=== PATIENT | female | born 1990 | race African-American/Black ===

== ENCOUNTER 2018-04-23 05:08 | Emergency (ER) | payer BC, OTHER ==
[2018-04-23 05:14] VITALS: BP 118/79
[2018-04-23] MEDS ORDERED: DEXAMETHASONE SOD PHOS INJ 10 MG/1 ML VIAL IM ONE (05:38)
[2018-04-23] MEDS ORDERED: KETOROLAC TROMETHAMINE INJ/PF 30 MG/1 ML SDV IM ONE (05:38)
--- NOTE | 2018-04-23 05:40 | ER Document Report ---
HPI - HPI Pain Level: 5 Notes: Patient is a 27-year-old female with no significant past medical history who presents to the ED complaining of from her shoulder blades down to her lower back 2 days. Patient states that she is doing physical training with [employer] and was doing a lot of twisting, bending, and lifting. Patient states that her soreness started thereafter. Pain is described as spasming and is worsened by truncal movements. Patient states that she did receive one muscle relaxer tablet by her [place], but did not feel much of a difference at that time. She has been eating and drinking without any difficulties. She is urinating normally and having normal bowel movements. Patient states that the pain does not radiate into her lower extremities. She has not had any surgeries or procedures to her back. She denies any previous history of spinal abscess. Denies any smoking or IV drug use. Denies any headache, fever, neck pain, URI, sore throat, chest pain, palpitations, syncope, cough, shortness of breath, wheeze, dyspnea, abdominal pain, nausea/vomiting/diarrhea, urinary retention, dysuria, hematuria, loss of control of bowel or bladder, numbness/ tingling, saddle anesthesia, muscle paralysis/weakness, or rash. - ROS Systems Reviewed and Negative: Yes All other systems reviewed and negative - REPRODUCTIVE LMP: 04-12-18 Reproductive: DENIES: : Past Medical History - Social History Smoking Status: Never Smoker Family History: Reviewed & Not Pertinent Past Surgical History: Reports: Hx Oral Surgery - wisdom teeth - Immunizations Hx Diphtheria, Pertussis, Tetanus Vaccination: Yes - Jan 2015 Vertical Provider Document - CONSTITUTIONAL Agree With Documented VS: Yes Notes: PHYSICAL EXAMINATION: GENERAL: Well-appearing, well-nourished and in no acute distress. LUNGS: Breath sounds clear to auscultation bilaterally and equal. No wheezes rales or rhonchi. HEART: Regular rate and rhythm without murmurs, rubs, gallops. ABDOMEN: Soft, nontender, nondistended abdomen. No guarding, no rebound. No masses appreciated. Normal bowel sounds present. No CVA tenderness bilaterally. No pulsatile mass Musculoskeletal: LE's b/l: FROM to passive/active. Strength 5+/5. No deficits noted. No bony tenderness of extremities. Back: FROM to passive/active. Strength 5+/5. No vertebral point tenderness, stepoffs, or deformities. No other bony tenderness, erythema, swelling, or ecchymosis. SLR negative b/l. + mild tenderness to the T&L-paraspinal mm b/l. Mild spasming. No SI jt tenderness. No foot drop Extremities: No cyanosis, clubbing, or edema b/l. Peripheral pulses 2+. Capillary refill less than 2 seconds. NEUROLOGICAL: Normal speech, normal gait. Normal sensory, motor exams. Reflexes 2+ b/l. PSYCH: Normal mood, normal affect. SKIN: Warm, Dry, normal turgor, no rashes or lesions noted. - INFECTION CONTROL TRAVEL OUTSIDE OF THE [place] IN LAST 30 DAYS: No Course - Re-evaluation Re-evalutation: 04/23/18 05:42 Patient is an afebrile, well-hydrated, 27-year-old female who presents to the ED with bilateral paraspinal thoracic and lumbar back pain, suspect strain and spasming. Vitals are acceptable. PE is otherwise unremarkable for any focal neurological deficits. Patient has no significant tachycardia, tachypnea, or hypoxia. She is nontoxic-appearing. Decadron and Toradol given IM today. No other red flag symptoms at this time. No other labs or imaging warranted at this time based on H&P. Low suspicion for any meningitis, fracture, expanding/ ruptured AAA, cauda equina syndrome, epidural mass lesion/abscess, herniated disc causing severe spinal stenosis, or other systemic infection at this time. Patient is aware that this condition can change from initial presentation and that she needs monitor symptoms closely for any acute changes. I will send her home with a prescription for baclofen and naproxen. Conservative measures otherwise for symptoms. Recheck with your PCM in 3-5 days. Consider consult orthopedic/physical therapy. Return to the ED with any worsening/concerning symptoms otherwise as reviewed discharge. Patient is in agreement. - Vital Signs Vital signs: Temp Pulse Resp BP Pulse Ox 98 F 77 18 118/79 98 04/23/18 05:13 04/23/18 05:13 04/23/18 05:13 04/23/18 05:13 04/23/18 05:13 Discharge - Discharge Clinical Impression: Thoracic back pain Qualifiers: Chronicity: acute Back pain laterality: bilateral Qualified Code(s): M54.6 - Pain in thoracic spine Low back pain Qualifiers: Chronicity: acute Back pain laterality: bilateral Sciatica presence: without sciatica Qualified Code(s): M54.5 - Low back pain Condition: Stable Disposition: HOME, SELF-CARE Instructions: Low Back Pain ([facility]), Muscle Relaxers ([facility]), Muscle Strain ([facility]), Stretching Exercises for the Back ([facility]) Additional Instructions: Rest, Ice, Compression, Elevation Tylenol/ibuprofen as needed Light stretches daily Strength exercises as able Moist heat and massage may help F/u with your PCP in 3-5 days for a recheck Consider consult(s) with Orthopedics/physical therapy for ongoing/worsening symptoms Return to the ED with any worsening symptoms and/or development of fever, headache, chest pain, palpitations, syncope, shortness of breath, trouble breathing, abdominal pain, n/v/d, blood in stool/urine, loss of control of bowel /bladder, urinary retention, muscle weakness/paralysis, saddle anesthesia, numbness/tingling, or other worsening symptoms that are concerning to you. Prescriptions: Baclofen [Baclofen 10 mg Tablet] 5 - 10 mg PO BID PRN #10 tablet PRN Reason: Naproxen 500 mg PO BID PRN #30 tablet PRN Reason: Referrals: KELLY SCOTT MD [Primary Care Provider] - Follow up in 3-5 days [facility] [Provider Group] - Follow up as needed
== END 2018-04-23 06:01 | disposition home or self-care (01) ==
LOC: ER 05:08
DX: M54.5 Low back pain (principal); M54.6 Pain in thoracic spine
CPT/HCPCS: 99283; 96372; J1885; J1100

== ENCOUNTER 2018-04-25 12:56 | Emergency (ER) | payer BC, OTHER ==
--- NOTE | 2018-04-25 13:32 | ER Document Report ---
ED Medical Screen (RME) - General Chief Complaint: Syncope Stated Complaint: SNYCOPE Time Seen by Provider: 04/25/18 13:24 Notes: RAPID MEDICAL EVALUATION DISCLOSURE I have seen this patient as part of a Rapid Medical Evaluation and, if applicable, placed any initially appropriate orders. The patient will be seen and fully evaluated, including a full history and physical exam, by a provider ( in Main ED or Fast Track) when a room becomes available. 27F here with complaints of syncope that occurred early this morning. She had one episode of syncope at work, with collapse. She remembers getting lightheaded, dizzy, sweaty, palpitations, and some chest pains prior to collapsing. When EMS arrived, they witnessed another episode of syncope. She has no prior history of similar. She has been eating and drinking per usual. She does currently have a headache but states that she did not hit her head. She also complains of some neck pain. EXAM CTAB RRR Midline cervical and thoracic spine TTP without step-off TRAVEL OUTSIDE OF THE [place] IN LAST 30 DAYS: No - Related Data Allergies/Adverse Reactions: No Known Allergies Allergy (Verified 02/07/15 01:21) Past Medical History - Social History Chew tobacco use (# tins/day): No Frequency of alcohol use: None Drug Abuse: None Renal/ Medical History: Denies: Hx Peritoneal Dialysis Past Surgical History: Reports: Hx Oral Surgery - wisdom teeth - Immunizations Hx Diphtheria, Pertussis, Tetanus Vaccination: Yes - Jan 2015 Physical Exam - Vital signs Vitals: Temp Pulse Resp BP Pulse Ox 98.4 F 92 18 119/81 98 04/25/18 13:05 04/25/18 13:04/25/18 13:04/25/18 13:04/25/18 13:05 Course - Vital Signs Vital signs: Temp Pulse Resp BP Pulse Ox 98.4 F 92 18 119/81 98 04/25/18 13:05 04/25/18 13:05 04/25/18 13:05 04/25/18 13:05 04/25/18 13:05
--- NOTE | 2018-04-25 14:53 | RADIOLOGY REPORT (SQ) ---
EXAM DESCRIPTION: CT HEAD WITHOUT COMPLETED DATE/TIME: 04/25/2018 2:41 pm REASON FOR STUDY: syncope/collapse, SOMMER, neck pain COMPARISON: None. TECHNIQUE: Axial images acquired through the brain without intravenous contrast. Images reviewed wi th bone, brain and subdural windows. Additional sagittal and coronal reconstructions were generated. Images stored on PACS. All CT scanners at this facility use dose modulation, iterative reconstruction, and/or weight based d osing when appropriate to reduce radiation dose to as low as reasonably achievable (ALARA). [facility]: Dose Right [facility]: CareDose [facility]: Dose Right [facility]: Teradose 4D [facility]: Smart [employer] RADIATION DOSE: CT Rad equipment meets quality standard of care and radiation dose reduction techniq ues were employed. CTDIvol: 53.2 mGy. DLP: 1070 mGy-cm. mGy. LIMITATIONS: None. FINDINGS: VENTRICLES: Normal size and contour. CEREBRUM: No masses. No hemorrhage. No midline shift. No evidence for acute infarction. Normal gra y/white matter differentiation. No areas of low density in the white matter. CEREBELLUM: No masses. No hemorrhage. No alteration of density. No evidence for acute infarction. EXTRAAXIAL SPACES: No fluid collections. No masses. ORBITS AND GLOBE: No intra- or extraconal masses. Normal contour of globe without masses. CALVARIUM: No fracture. PARANASAL SINUSES: No fluid or mucosal thickening. SOFT TISSUES: No mass or hematoma. OTHER: No other significant finding. IMPRESSION: NORMAL BRAIN CT WITHOUT CONTRAST. EVIDENCE OF ACUTE STROKE: NO. COMMENT: Quality ID # 436: Final reports with documentation of one or more dose reduction techniques (e.g., Automated exposure control, adjustment of the mA and/or kV according to patient size, use of iterative reconstruction technique) TECHNICAL DOCUMENTATION: JOB ID: [id number] [employer]- All Rights Reserved Reading location - IP/workstation name: [email or web address]
--- NOTE | 2018-04-25 14:55 | RADIOLOGY REPORT (SQ) ---
EXAM DESCRIPTION: CT CERVICAL SPINE WITHOUT COMPLETED DATE/TIME: 04/25/2018 2:41 pm REASON FOR STUDY: syncope/collapse, SOMMER, neck pain COMPARISON: None. TECHNIQUE: Axial images acquired through the cervical spine without intravenous contrast. Images re viewed with lung, soft tissue and bone windows. Reconstructed coronal and sagittal MPR images review ed. Images stored on PACS. All CT scanners at this facility use dose modulation, iterative reconstruction, and/or weight based d osing when appropriate to reduce radiation dose to as low as reasonably achievable (ALARA). [facility]: Dose Right [facility]: CareDose [facility]: Dose Right [facility]: Teradose 4D [facility]: Smart [employer] RADIATION DOSE: CT Rad equipment meets quality standard of care and radiation dose reduction techniq ues were employed. CTDIvol: 22.0 mGy. DLP: 445 mGy-cm. mGy. LIMITATIONS: None. FINDINGS: ALIGNMENT: Anatomic. MINERALIZATION: Normal. VERTEBRAL BODIES: No fractures or dislocation. DISCS: No significant disc disease. FACETS, LATERAL MASSES, POSTERIOR ELEMENTS: No fractures. No dislocation. No acute findings. HARDWARE: None in the spine. VISUALIZED RIBS: No fractures. LUNG APICES AND SOFT TISSUES: No significant or acute findings. OTHER: No other significant finding. IMPRESSION: NO ACUTE OR SIGNIFICANT FINDINGS IN THE CERVICAL SPINE. TECHNICAL DOCUMENTATION: JOB ID: [id number] Quality ID # [id number]: Final reports with documentation of one or more dose reduction techniques (e.g., Au tomated exposure control, adjustment of the mA and/or kV according to patient size, use of iterative reconstruction technique) 2010 [employer]- All Rights Reserved Reading location - IP/workstation name: [email or web address]
--- NOTE | 2018-04-25 15:11 | RADIOLOGY REPORT (SQ) ---
EXAM DESCRIPTION: CHEST 2 VIEWS COMPLETED DATE/TIME: 04/25/2018 3:03 pm REASON FOR STUDY: syncope/collapse, SOMMER, neck pain COMPARISON: None. EXAM PARAMETERS: NUMBER OF VIEWS: two views TECHNIQUE: Digital Frontal and Lateral radiographic views of the chest acquired. RADIATION DOSE: NA LIMITATIONS: none FINDINGS: LUNGS AND PLEURA: No opacities, masses or pneumothorax. No pleural effusion. MEDIASTINUM AND HILAR STRUCTURES: No masses or contour abnormalities. HEART AND VASCULAR STRUCTURES: Heart normal size. No evidence for failure. BONES: No acute findings. HARDWARE: None in the chest. OTHER: No other significant finding. IMPRESSION: NO ACUTE RADIOGRAPHIC FINDING IN THE CHEST. TECHNICAL DOCUMENTATION: JOB ID: [id number] [employer]- All Rights Reserved Reading location - IP/workstation name: [email or web address]
--- NOTE | 2018-04-25 15:12 | RADIOLOGY REPORT (SQ) ---
EXAM DESCRIPTION: T SPINE AP/LAT COMPLETED DATE/TIME: 04/25/2018 3:03 pm REASON FOR STUDY: fall COMPARISON: None. NUMBER OF VIEWS: Two views. TECHNIQUE: AP and lateral radiographic images acquired of the thoracic spine. LIMITATIONS: None. FINDINGS: MINERALIZATION: Normal. ALIGNMENT: Normal. No scoliosis. VERTEBRAE: No fracture or bone lesion. Maintained height, normal segmentation. DISCS: No significant loss of height or significant narrowing. No large osteophytes. HARDWARE: None in the spine. MEDIASTINUM AND SOFT TISSUES: Normal heart size and aortic contour. No soft tissue abnormality. VISUALIZED LUNG COLBY: Clear. OTHER: No other significant finding. IMPRESSION: NO SIGNIFICANT RADIOGRAPHIC FINDING IN THE THORACIC SPINE. TECHNICAL DOCUMENTATION: JOB ID: [id number] [employer]- All Rights Reserved Reading location - IP/workstation name: [email or web address]
[2018-04-25 15:18] LABS: ABSOLUTE MONOCYTES (AUTO) 0.6 10^3/uL (0.1-1.4); ABSOLUTE NEUT (AUTO) 1.8 10^3/uL (1.7-8.2); BASOPHILS % (AUTO) 0.7 % (0-2); EOSINOPHILS % (AUTO) 0.3 % (0-6); HEMATOCRIT 37.9 % (36.0-47.0); HEMOGLOBIN 12.6 g/dL (12.0-15.5); LYMPHOCYTES % (AUTO) 29.1 % (13-45); MEAN CORPUSCULAR HEMOGLOBIN 29.9 pg (27.0-33.4); MEAN CORPUSCULAR HGB CONC 33.3 g/dL (32.0-36.0); MEAN CORPUSCULAR VOLUME 90 fl (80-97); MONOCYTES % (AUTO) 18.4 % (3-13); PLATELET COUNT 156 10^3/uL (150-450); RED BLOOD COUNT 4.23 10^6/uL (3.72-5.28); RED CELL DISTRIBUTION WIDTH 12.8 % (11.5-14.0); SEGMENTED NEUTROPHILS % (AUTO) 51.5 % (42-78); TOTAL CELLS COUNTED % (AUTO) 100 %; WHITE BLOOD COUNT 3.5 10^3/uL (4.0-10.5)
[2018-04-25 15:58] LABS: ALANINE AMINOTRANSFERASE 42 U/L (9-52); ALBUMIN 4.1 g/dL (3.5-5.0); ALKALINE PHOSPHATASE 70 U/L (38-126); ANION GAP 11 (5-19); ASPARTATE AMINO TRANSFERASE 35 U/L (14-36); BILIRUBIN,DIRECT 0.3 mg/dL (0.0-0.4); BILIRUBIN,TOTAL 0.5 mg/dL (0.2-1.3); BLOOD UREA NITROGEN 14 mg/dL (7-20); CALCIUM 9.1 mg/dL (8.4-10.2); CARBON DIOXIDE 27 mmol/L (22-30); CHLORIDE 104 mmol/L (98-107); GLUCOSE 76 mg/dL (75-110); PHOSPHORUS 4.7 mg/dL (2.5-4.5); POTASSIUM 3.6 mmol/L (3.6-5.0); SODIUM 141.7 mmol/L (137-145); TOTAL PROTEIN 7.1 g/dL (6.3-8.2)
--- NOTE | 2018-04-25 16:25 | ER Document Report ---
ED General <CARLEEN WU - Last Filed: 04/25/18 16:38> - General Mode of Arrival: Ambulatory Information source: Patient TRAVEL OUTSIDE OF THE [place] IN LAST 30 DAYS: No <TONE SURESH - Last Filed: 04/25/18 16:39> - General Chief Complaint: Syncope Stated Complaint: SNYCOPE Time Seen by Provider: 04/25/18 13:24 Notes: 27 y.o female presents to the ED via EMS s/p two syncopal episode earlier today. Pt reports that she went to her daughter's field day at school and was feeling fine but when she got to work she started feeling faint with her heart racing so she sat down and got some fresh air and started to feel better but when coming back inside to sit down she was walking and the next thing she knew she was on the ground with everyone around her because she had fainted. Pt states that she does not know how long she had loss consciousness. Pt had her second syncopal episode after EMS had arrived. She denies any recent illness or malaise and reports that she had felt fine leading up to her faint feeling. 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 T-spine X-Ray, CXR, CT cervical spine and head were all normal 2 days ago. Today pt's CBC, chemistries and test were all normal. Pt's PCP is Dr. Lopez. (TONE SURESH) - Related Data Allergies/Adverse Reactions: No Known Allergies Allergy (Verified 02/07/15 01:21) Past Medical History - General Information source: Patient - Social History Smoking Status: Never Smoker Chew tobacco use (# tins/day): No Frequency of alcohol use: None Drug Abuse: None Family History: Reviewed & Not Pertinent Patient has suicidal ideation: No Patient has homicidal ideation: No Renal/ Medical History: Denies: Hx Peritoneal Dialysis Past Surgical History: Reports: Hx Oral Surgery - wisdom teeth - Immunizations Hx Diphtheria, Pertussis, Tetanus Vaccination: Yes - Jan 2015 <TONE SURESH - Last Filed: 04/25/18 16:39> Review of Systems - Review of Systems Constitutional: See HPI. denies: Malaise, Recent illness EENT: No symptoms reported Cardiovascular: See HPI, Other - feeling faint; hearth racing Respiratory: No symptoms reported Gastrointestinal: No symptoms reported Genitourinary: No symptoms reported Female Genitourinary: No symptoms reported Musculoskeletal: No symptoms reported Skin: No symptoms reported Hematologic/Lymphatic: No symptoms reported Neurological/Psychological: See HPI, Lost consciousness -: Yes All other systems reviewed and negative <TONE SURESH - Last Filed: 04/25/18 16:39> Physical Exam <CARLEEN WU - Last Filed: 04/25/18 16:38> <TONE SURESH - Last Filed: 04/25/18 16:39> - Vital signs Vitals: Temp Pulse Resp BP Pulse Ox 98.4 F 92 18 119/81 98 04/25/18 13:05 04/25/18 13:05 04/25/18 13:05 04/25/18 13:05 04/25/18 13:05 - Notes Notes: Physical Exam: General: Alert, appears well. HEENT: Normocephalic. Atraumatic. PERRL. Extraocular movements intact. Oropharynx clear. Neck: Supple. Non-tender. Respiratory: No respiratory distress. Clear and equal breath sounds bilaterally. Cardiovascular: Regular rate and rhythm. No murmurs. No peripheral edema. Abdominal: Normal Inspection. Non-tender. No distension. Normal Bowel Sounds. Back: Muscle soreness. No deformity or step off. Extremities: Moves all four extremities. Upper extremities: Normal inspection. Normal ROM. Lower extremities: Normal inspection. No edema. Normal ROM. Neurological: Normal cognition. AAOx3. Normal speech. Psychological: Normal affect. Normal Mood. Skin: Warm. Dry. Normal color. (TONE SURESH) Course - Laboratory Result Diagrams: 04/25/18 14:55 04/25/18 14:55 - Diagnostic Test Radiology reviewed: Reports reviewed - CT scan of the head and neck were normal. Chest x-ray is normal. Thoracic spine x-ray is normal. - EKG Interpretation by Vt EKG shows normal: Sinus rhythm, [place], Intervals, QRS Complexes. abnormal: ST-T Waves - Borderline anterior T abnormalities Rate: Normal - 68 Rhythm: NSR <CARLEEN WU - Last Filed: 04/25/18 16:38> - Laboratory Result Diagrams: 04/25/18 14:55 04/25/18 14:55 <TONE SURESH - Last Filed: 04/25/18 16:39> - Re-evaluation Re-evalutation: 04/25/18 16:37 CTs, x-rays, CBC, chemistries, test were all normal. (CARLEEN WU) - Vital Signs Vital signs: Temp Pulse Resp BP Pulse Ox 98.4 F 92 18 119/81 98 04/25/18 13:05 04/25/18 13:05 04/25/18 13:05 04/25/18 13:05 04/25/18 13:05 - Laboratory Laboratory results interpreted by me: 04/25/18 04/25/18 14:55 14:55 WBC 3.5 L Monocytes % 18.4 H Phosphorus 4.7 H Discharge <CARLEEN WU - Last Filed: 04/25/18 16:38> <TONE SURESH - Last Filed: 04/25/18 16:39> - Discharge Clinical Impression: Syncope and collapse Additional Instructions: Syncopal Episode Syncope (fainting or near-fainting) can occur from many different health problems. Or it can be a simple fainting spell requiring no treatment. It is safe for you to go home, but further evaluation will likely be necessary. Your work-up may include tests for internal bleeding, heart disease, medication problems, or near-strokes. Tests are not always required, however, depending on the nature of your problem. The warning signs of an impending faint include: dizziness, lightheadedness , nausea, hot flashes, tingling, and weakness. If this happens, lay down and put your feet up, then wait until all of these symptoms have passed before standing up again. If these episodes become recurrent, or if you develop chest pain, heart palpitations, mental confusion, blurred vision, or headache, then you should call the physician, or go to the emergency room. Drink plenty of fluids today. Get plenty of rest today. Call Dr. Culp's office to have a Holter monitor or 30 day event monitor put on. Follow-up with Dr. Lopez this week. RETURN TO THE EMERGENCY ROOM IF ANY NEW OR WORSENING SYMPTOMS. Referrals: MARYCARMEN CULP MD [ACTIVE STAFF] - Follow up tomorrow (Call the office to schedule a Holter monitor or 30 day event monitor.) ZARI LOPEZ MD [ACTIVE STAFF] - Follow up in 3-5 days Scribe Attestation: 04/25/18 16:33 I personally performed the services described in the documentation, reviewed and edited the documentation which was dictated to the scribe in my presence, and it accurately records my words and actions. (CARLEEN WU) Scribe Documentation - Scribe Written by Shane:: Shane Leone 04/25/18 1612 acting as scribe for :: Kelvin <TONE SURESH - Last Filed: 04/25/18 16:39>
[2018-04-25 17:20] VITALS: BP 104/64
--- NOTE | 2018-04-25 22:10 | EKG REPORT ---
SEVERITY:- BORDERLINE ECG - SINUS RHYTHM BORDERLINE T ABNORMALITIES, ANTERIOR LEADS : Confirmed by: Bhavna Car MD 25-Apr-2018 22:09:05
== END 2018-04-25 17:21 | disposition home or self-care (01) ==
LOC: ER 12:56
DX: R55 Syncope and collapse (principal); R51 Headache; M54.2 Cervicalgia; W19.XXXA Unspecified fall, initial encounter; Y93.89 Activity, other specified; Y99.0 Civilian activity done for income or pay
CPT/HCPCS: 36415; 70450; 71046; 72070; 72125; 80053; 81025; 83735; 84100; 85025; 93005; 93010; 99285

== ENCOUNTER 2018-12-03 23:11 | Emergency (ER) | payer OTHER, BC ==
[2018-12-03 23:26] VITALS: BP 130/88
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
[2018-12-04] MEDS ORDERED: KETOROLAC TROMETHAMINE 10 MG TABLET PO ONE (01:26)
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
== END 2018-12-04 01:38 | disposition home or self-care (01) ==
LOC: ER 23:11
DX: M54.5 Low back pain (principal); M79.605 Pain in left leg; R09.89 Other specified symptoms and signs involving the circulatory and respiratory systems; V44.5XXA Car driver injured in collision with heavy transport vehicle or bus in traffic accident, initial encounter
CPT/HCPCS: 99283; 72131; J3490

== ENCOUNTER 2020-08-07 05:20 | Day surgery (SDC) | payer BC, OTHER ==
[2020-08-04 12:14] LABS: HEMATOCRIT 43.8 % (36.0-47.0); HEMOGLOBIN 14.7 g/dL (12.0-15.5); MEAN CORPUSCULAR HEMOGLOBIN 30.3 pg (27.0-33.4); MEAN CORPUSCULAR HGB CONC 33.5 g/dL (32.0-36.0); MEAN CORPUSCULAR VOLUME 90 fl (80-97); PLATELET COUNT 233 10^3/uL (150-450); RED BLOOD COUNT 4.85 10^6/uL (3.72-5.28); RED CELL DISTRIBUTION WIDTH 13.7 % (11.5-14.0); WHITE BLOOD COUNT 10.3 10^3/uL (4.0-10.5)
[~2020-08-07 05:20] MED LIST: CEFAZOLIN 2 GM/D5W RTU 2 GM/50 ML RTUPB IV ONE; LACTATED RINGERS 1000 ML IV PRN; LIDOCAINE 0.5% INJ-PF (5 MG/ML) 50 ML SDV SUBCUT PRN
[2020-08-07] MEDS ORDERED: SUGAMMADEX SODIUM 200 MG/2 ML SDV IV ONE (06:58)
[2020-08-07] MEDS ORDERED: MIDAZOLAM 2 MG/2 ML INJ ONE (06:58)
[2020-08-07] MEDS ORDERED: HYDROMORPHONE HCL INJ/PF 2 MG/ML AMPULE ONE (06:59)
[2020-08-07] MEDS ORDERED: PROPOFOL INJ 200 MG/20 ML VIAL IV ONE (06:59)
[2020-08-07] MEDS ORDERED: BUPIVACAINE INJ/PF LIPOSOME/PF 266 MG/20 ML SDV ONE (07:09)
[2020-08-07] MEDS ORDERED: PROMETHAZINE HCL INJ 25 MG/1 ML VIAL IV PRN ×2 (08:22)
[2020-08-07] MEDS ORDERED: OXYCODONE-ACETAMINOPHEN 5-325 MG TABLET PO PRN ×3 (08:22→09:05)
[2020-08-07] MEDS ORDERED: MEPERIDINE HCL/PF INJ 25 MG/1 ML DISP.SYRIN IV PRN (08:22)
[2020-08-07] MEDS ORDERED: ONDANSETRON HCL INJ/PF 4 MG/2 ML SDV IV PRN (08:22)
[2020-08-07] MEDS ORDERED: DIPHENHYDRAMINE HCL 50 MG/ML VIAL IV PRN (08:22)
[2020-08-07] MEDS ORDERED: FENTANYL CITRATE INJ/PF 100 MCG/2 ML AMPUL IV PRN ×3 (08:22)
--- NOTE | 2020-08-07 08:45 | Operative Report ---
Nonrecallable Operative Report DATE OF SURGERY: 08/07/20 PREOPERATIVE DIAGNOSIS: Ventral hernia POSTOPERATIVE DIAGNOSIS: Ventral hernia OPERATION: Laparoscopic repair of ventral hernia SURGEON: DEANNA WILSON [employer]ST [employer] APPRENTICE: CRISTINA WILSON ANESTHESIA: GA TISSUE REMOVED OR ALTERED: None COMPLICATIONS: None ESTIMATED BLOOD LOSS: 0 INTRAOPERATIVE FINDINGS: See note PROCEDURE: Patient was brought to the operating awake alert stable condition placed on the operative supine position induced under general anesthesia intubated. The abdomen was prepped draped usual sterile fashion for the procedure. After appropriate timeout site verification the procedure commenced. A varies needle was placed into the umbilicus and the abdomen was insufflated with 6 L of CO2 gas. A supra pubic 5 mm port was then placed intra-abdominal visualization revealed no evidence of Veress needle or trocar injury. Of note there was a number of supraumbilical hernias approximately 2 cm in diameter that were 2 or 3 extending from the umbilicus to the falciform proximally there is also one small infraumbilical defect. These were all less than 2 cm in diameter but there are at least 3 of them. There was incarcerated fat in all 3 of them which was dissected out with Bovie cautery and removed. We then used a piece of ventral X mesh approximately 10 cm round and placed it into the abdominal cavity and fixed to the anterior abdominal fascia with circumferentially O covering all defects with at least 2 cm margin they were fixed it was fixed with absorb attacks. This was done through 2 additional ports placed laterally a 5 mm and 1 left lower quadrant 10 mm port. After the fixation of the mesh the 10 mm port in the left lower quadrant defect was closed with 0 Vicryl and then all skin incisions were closed with intracuticular 4-0 Biosyn Steri-Strips completed the procedure estimated blood loss was less than 10 cc sponge needle counts were correct x2 patient was awakened in the operating extubated transferred recovery in stable condition no complications. VARINDER Acevedo was present for the entire procedure for help with wound retraction wound closure
[2020-08-07] MEDS ORDERED: FENTANYL CITRATE INJ/PF 100 MCG/2 ML AMPUL ONE (08:49)
--- NOTE | 2020-08-07 09:05 | Discharge Summary ---
Discharge Summary (SDC) - Discharge Final Diagnosis: Ventral hernia Date of Surgery: 08/07/20 Discharge Date: 08/07/20 Condition: Good Prescriptions: Oxycodone HCl/Acetaminophen [Percocet 5-325 mg Tablet] 1 tab PO Q6HP PRN #15 tab PRN Reason: Oxycodone HCl/Acetaminophen [Percocet 5-325 mg Tablet] 1 tab PO Q6HP PRN #15 tab PRN Reason: Referrals: ZARI LOPEZ MD [Primary Care Provider] - Discharge Diet: As Tolerated Discharge Activity: Activity As Tolerated, No Lifting Over 10 Pounds
[2020-08-07] MEDS ORDERED: OXYCODONE-ACETAMINOPHEN 5-325 MG TABLET ONE (09:50)
[2020-08-07] MEDS ORDERED: KETOROLAC TROMETHAMINE 60 MG/2 ML SDV ONE (10:46)
[2020-08-07] MEDS ORDERED: LIDOCAINE 2% INJ-PF (20 MG/ML) 2 ML AMPUL ONE (10:46)
[2020-08-07] MEDS ORDERED: ROCURONIUM BROMIDE INJ 50 MG/5 ML VIAL IV ONE (10:46)
[2020-08-07] MEDS ORDERED: DEXAMETHASONE SOD PHOSPHATE INJ 4 MG/1 ML VIAL ONE (10:46)
[2020-08-07] MEDS ORDERED: ONDANSETRON HCL INJ/PF 4 MG/2 ML SDV ONE (10:46)
[2020-08-07] MEDS ORDERED: GLYCOPYRROLATE 1 MG/5 ML VIAL ONE (10:46)
[2020-08-07] MEDS ORDERED: METOCLOPRAMIDE HCL INJ/PF 10 MG/2 ML SDV ONE (10:46)
[2020-08-07] MEDS ORDERED: NEOSTIGMINE METHYLSULFATE 10 MG/10 ML VIAL ONE (10:46)
[2020-08-07 11:45] VITALS: BP 115/77
== END 2020-08-07 11:30 | disposition home or self-care (01) ==
LOC: OROUT 05:20
PROVIDERS: ATTEND Surgery
DX: K43.9 Ventral hernia without obstruction or gangrene (principal); Z03.818 Encounter for observation for suspected exposure to other biological agents ruled out
CPT/HCPCS: 36415; 85027; 87635; 81025; 00790; 49652; J2250; J3010; J1170; J2704; J0690; C9290; C9803; 790; C1713; C1781; J1100; J1885; J2405; J2710; J2765; J3490